=== PATIENT | male | born 1970 | race Caucasian/White ===

== ENCOUNTER 2018-09-16 18:48 | Emergency (ER) | payer SELFPAY ==
[2018-09-16 19:18] LABS: ABSOLUTE EOSINOPHILS # (AUTO) 0.8 10^3/uL (0.0-0.6); ABSOLUTE LYMPHOCYTES (AUTO) 3.2 10^3/uL (0.5-4.7); ABSOLUTE NEUT (AUTO) 5.5 10^3/uL (1.7-8.2); BASOPHILS % (AUTO) 0.3 % (0-2); EOSINOPHILS % (AUTO) 7.5 % (0-6); HEMOGLOBIN 14.3 g/dL (13.5-17.0); LYMPHOCYTES % (AUTO) 30.6 % (13-45); MEAN CORPUSCULAR HEMOGLOBIN 31.7 pg (27.0-33.4); MEAN CORPUSCULAR HGB CONC 34.9 g/dL (32.0-36.0); MEAN CORPUSCULAR VOLUME 91 fl (80-97); MONOCYTES % (AUTO) 9.2 % (3-13); PLATELET COUNT 267 10^3/uL (150-450); RED BLOOD COUNT 4.51 10^6/uL (4.35-5.55); RED CELL DISTRIBUTION WIDTH 13.5 % (11.5-14.0); SEGMENTED NEUTROPHILS % (AUTO) 52.4 % (42-78); TOTAL CELLS COUNTED % (AUTO) 100 %; WHITE BLOOD COUNT 10.5 10^3/uL (4.0-10.5)
--- NOTE | 2018-09-16 19:23 | RADIOLOGY REPORT (SQ) ---
EXAM DESCRIPTION: CHEST SINGLE VIEW COMPLETED DATE/TIME: 09/16/2018 7:13 pm REASON FOR STUDY: cp COMPARISON: None. EXAM PARAMETERS: NUMBER OF VIEWS: One view. TECHNIQUE: Single frontal radiographic view of the chest acquired. RADIATION DOSE: NA LIMITATIONS: None. FINDINGS: LUNGS AND PLEURA: No opacities, masses or pneumothorax. No pleural effusion. MEDIASTINUM AND HILAR STRUCTURES: No masses. Contour normal. HEART AND VASCULAR STRUCTURES: Heart normal in size. Normal vasculature. BONES: No acute findings. HARDWARE: Left-sided dual lead pacemaker OTHER: No other significant finding. IMPRESSION: NO ACUTE RADIOGRAPHIC FINDING IN THE CHEST. TECHNICAL DOCUMENTATION: JOB ID: [id number] [employer]- All Rights Reserved Reading location - IP/workstation name: [email or web address]
[2018-09-16 19:35] LABS: ALANINE AMINOTRANSFERASE 23 U/L (21-72); ALBUMIN 4.2 g/dL (3.5-5.0); ALKALINE PHOSPHATASE 54 U/L (38-126); ANION GAP 9 (5-19); ASPARTATE AMINO TRANSFERASE 24 U/L (17-59); BILIRUBIN,DIRECT 0.2 mg/dL (0.0-0.4); BILIRUBIN,TOTAL 0.4 mg/dL (0.2-1.3); BLOOD UREA NITROGEN 14 mg/dL (7-20); CALCIUM 9.7 mg/dL (8.4-10.2); CARBON DIOXIDE 27 mmol/L (22-30); CHLORIDE 100 mmol/L (98-107); CREATINE KINASE 107 U/L (55-170); GLUCOSE 106 mg/dL (75-110); SODIUM 135.5 mmol/L (137-145); TOTAL PROTEIN 6.7 g/dL (6.3-8.2)
[2018-09-16 19:36] LABS: POTASSIUM 4.3 mmol/L (3.6-5.0)
[2018-09-16 19:47] LABS: CREATINE KINASE MB 1.74 ng/mL (<4.55); TROPONIN I < 0.012 ng/mL
--- NOTE | 2018-09-16 22:06 | ER Document Report ---
ED General - General Chief Complaint: Chest Pain Stated Complaint: CHEST PAIN Time Seen by Provider: 09/16/18 20:04 Notes: Patient is a 47-year-old male with a past medical history of prior CA, AICD placement due to recurrent ventricular tachycardia, morbid obesity, hypertension, presents with complaints of having his AICD fired just prior to arrival. 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 States that it has fired once in the past for ventricular tachycardia approximately 4 or 5 years ago. At the time of my evaluation he states that he feels very anxious but denies any additional symptoms. Denies any preceding chest pain, shortness of breath, nausea, diaphoresis or vomiting denies any the symptoms currently. He has not contacted his combo welder regarding today's concerns. Denies any medication noncompliance or missed medications. - HPI Onset: Just prior to arrival Onset/Duration: Sudden Quality of pain: No pain Severity: None Pain Level: Denies Associated symptoms: None Exacerbated by: Denies Relieved by: Denies Similar symptoms previously: Yes Recently seen / treated by doctor: No - Related Data Allergies/Adverse Reactions: No Known Allergies Allergy (Verified 09/16/18 22:06) Past Medical History - General Information source: Patient - Social History Smoking Status: Never Smoker Frequency of alcohol use: Occasional Drug Abuse: None Lives with: Family Family History: Reviewed & Not Pertinent Patient has suicidal ideation: No Patient has homicidal ideation: No Renal/ Medical History: Denies: Hx Peritoneal Dialysis Review of Systems - Review of Systems Notes: Constitutional: Negative for fever. HENT: Negative for sore throat. Eyes: Negative for visual changes. Cardiovascular: Negative for chest pain. Respiratory: Negative for shortness of breath. Gastrointestinal: Negative for abdominal pain, vomiting or diarrhea. Genitourinary: Negative for dysuria. Musculoskeletal: Negative for back pain. Skin: Negative for rash. Neurological: Negative for headaches, weakness or numbness. 10 point ROS negative except as marked above and in HPI. Physical Exam - Vital signs Vitals: Resp Pulse Ox 13 98 09/16/18 18:52 09/16/18 18:52 Interpretation: Normal Notes: PHYSICAL EXAMINATION: GENERAL: Well-appearing, well-nourished and in no acute distress. HEAD: Atraumatic, normocephalic. EYES: Pupils equal round and reactive to light, extraocular movements intact, sclera anicteric, conjunctiva are normal. ENT: nares patent, oropharynx clear without exudates. Moist mucous membranes. NECK: Normal range of motion, supple without lymphadenopathy LUNGS: Breath sounds clear to auscultation bilaterally and equal. No wheezes rales or rhonchi. HEART: Regular rate and rhythm without murmurs ABDOMEN: Soft, nontender, normoactive bowel sounds. No guarding, no rebound. No masses appreciated. EXTREMITIES: Normal range of motion, no pitting or edema. No cyanosis. NEUROLOGICAL: No focal neurological deficits. Moves all extremities sponta neously and on command. PSYCH: Normal mood, normal affect. SKIN: Warm, Dry, normal turgor, no rashes or lesions noted. Course - Re-evaluation Re-evalutation: 09/16/18 22:05 Patient presents with an episode of lightheadedness, becoming sweaty and then having his AICD fire. The patient states that this feels similar to when he was shocked in the past for ventricular tachycardia. On arrival he denies any symptoms of any kind. Denies any preceding chest pain, shortness of breath or pleuritic pain. Patient states that he has been compliant with his medications. I did contact [facility] where his combo welder, Dr. Graff cares for him. I did speak with Dr. Zaragoza who recommended that given the interrogation of his AICD does reveal that he had an episode of ventricular fibrillation that required defibrillation that he be transferred. The patient is in agreement. He will remain on medical imaging specialist. Will cycle cardiac markers and Dr. Zaragoza has also requested a BNP be completed. 09/17/18 01:31 Patient has remained hemodynamically stable. Transport has arrived and patient is appropriate for transport at this time. - Vital Signs Vital signs: Temp Pulse Resp BP Pulse Ox 98.2 F 76 10 L 115/78 93 09/16/18 22:04 09/16/18 22:04 09/17/18 01:01 09/17/18 01:01 09/17/18 01:01 - Laboratory Result Diagrams: 09/16/18 19:10 09/16/18 19:10 Laboratory results interpreted by me: 09/16/18 09/16/18 09/16/18 19:10 19:10 22:25 Eosinophils % 7.5 H Absolute Eosinophils 0.8 H Sodium 135.5 L NT-Pro-B Natriuret Pep 160 H - Diagnostic Test Radiology reviewed: Image reviewed, Reports reviewed Radiology results interpreted by me: 09/17/18 06:08 Chest x-ray: No acute infiltrate or pneumothorax - EKG Interpretation by Me Additional EKG results interpreted by me: 09/17/18 06:09 Sinus rhythm. Rate 86. Intermittent PVCs. No ST elevations or depressions. QTC 455. Discharge - Discharge Clinical Impression: AICD discharge, Ventricular fibrillation Condition: Fair Disposition: Tertiary-Other
--- NOTE | 2018-09-16 22:55 | EKG REPORT ---
SEVERITY:- ABNORMAL ECG - SINUS RHYTHM RUN OF VENTRICULAR PREMATURE COMPLEXES NONSPECIFIC INTRAVENTRICULAR CONDUCTION DELAY INFERIOR INFARCT, AGE INDETERMINATE : Confirmed by: Purvi Ying MD 16-Sep-2018 22:54:18
[2018-09-16 23:05] LABS: NT PRO BNP 160 pg/mL (<125)
[2018-09-16 23:07] LABS: TROPONIN I < 0.012 ng/mL
[2018-09-17] MEDS ORDERED: DIAZEPAM 5 MG TABLET ONE (00:12)
[2018-09-17] MEDS ORDERED: DIAZEPAM 5 MG TABLET PO ONE (00:13)
[2018-09-17 01:12] VITALS: BP 115/78
== END 2018-09-17 01:40 | disposition short-term general hospital (02) ==
LOC: ER 18:48
DX: I48.91 Unspecified atrial fibrillation (principal); Z95.810 Presence of automatic (implantable) cardiac defibrillator; I49.3 Ventricular premature depolarization; R42 Dizziness and giddiness; R61 Generalized hyperhidrosis; I25.2 Old myocardial infarction; I10 Essential (primary) hypertension; E66.01 Morbid (severe) obesity due to excess calories; I47.2 Ventricular tachycardia
CPT/HCPCS: 36415; 71045; 80053; 82550; 82553; 83880; 84484; 85025; 93005; 93010; 99285